=== PATIENT | female | born 1980 | race Caucasian/White ===

== ENCOUNTER 2016-12-24 15:07 | Outpatient (CLI) | payer BC ==
[~2016-12-24] VITALS: Ht 160 cm; Wt 90.3 kg
[2016-12-24] MEDS ORDERED: NORG1TAB14 PO (15:18)
[2016-12-24] MEDS ORDERED: LORA10TA7 PO (15:18)
[2016-12-24 15:19] VITALS: BP 128/79
[2016-12-24 15:48] LABS: BASOPHILS % (AUTO) 0 % (0-10); EOSINOPHILS # (AUTO) 0.1 10^3/uL (0.0-0.3); EOSINOPHILS % (AUTO) 1 % (0-10); LYMPHOCYTES # (AUTO) 2.7 X 10^3 (1.0-4.0); LYMPHOCYTES % (AUTO) 31 % (12-44); MEAN CORPUSCULAR HEMOGLOBIN 27 PG (25-34); MEAN CORPUSCULAR HGB CONC 33 G/DL (32-36); MEAN CORPUSCULAR VOLUME 84 FL (80-99); MEAN PLATELET VOLUME 12.4 FL (7.4-10.4); MONOCYTES # (AUTO) 0.6 X 10^3 (0.0-1.0); MONOCYTES % (AUTO) 7 % (0-12); NEUTROPHILS # (AUTO) 5.1 X 10^3 (1.8-7.8); NEUTROPHILS % (AUTO) 60 % (42-75); PLATELET COUNT 184 10^3/uL (130-400); RED BLOOD COUNT 4.88 10^6/uL (4.35-5.85); RED CELL DISTRIBUTION WIDTH 14.3 % (10.0-14.5); WHITE BLOOD COUNT 8.5 10^3/uL (4.3-11.0)
== END 2016-12-24 15:30 | disposition home or self-care (01) ==
LOC: PREOP 15:07
PROVIDERS: ATTEND Obstetrics & Gynecology
DX: Z01.812 Encounter for preprocedural laboratory examination (principal); Z11.2 Encounter for screening for other bacterial diseases; R19.09 Other intra-abdominal and pelvic swelling, mass and lump; N93.8 Other specified abnormal uterine and vaginal bleeding
CPT/HCPCS: 36415; 85025; 87081

== ENCOUNTER 2016-12-29 10:45 | Day surgery (SDC) | payer BC ==
--- NOTE | 2016-12-22 10:52 | HISTORY AND PHYSICAL ---
DATE OF SERVICE: 12/29/2016 This patient is a 36-year-old white female with a long history of irregular and dysfunctional bleeding. Ultrasound on 11/18/2016 showed a mass in the endometrial cavity near the right apex of 8 mm in diameter surrounded with fluid consistent with a polyp and/or fibroid versus other etiology. She continues to have spotting, bleeding and occasional passing of clots. She has some cramping with her cycles. She denies vaginal bleeding. She has no problem with her bowel or bladder. She denies dysuria or dyskinesia. ALLERGIES: HYDROCODONE which causes nausea. MEDICATIONS: Sprintec and an clzy-jsz-srvsnjk allergy medication. PAST MEDICAL HISTORY: Significant for having a dislocated left elbow at 12 years old. PAST MEDICAL HISTORY: A tubal sterilization performed on 10/30/2006. PAST OBSTETRIC HISTORY: Includes 1 term delivery. REVIEW OF SYSTEMS: As per the HPI. PHYSICAL EXAMINATION: HEENT: Normal. NECK: Supple with no lymphadenopathy, no thyromegaly. ABDOMEN: Soft, nontender, nondistended, mildly protuberant. EXTREMITIES: No clubbing or cyanosis. There is no Óscar's sign. PELVIC: Reveals normal internal and external genitalia with a normal rugous vagina. Urethra is somewhat hypermobile but there is a negative stress test with Valsalva. The cervix shows a large ectropion but otherwise is normal. The uterus is normal in size, consistency, contour, texture. It is anteverted. Adnexa is unremarkable. ASSESSMENT AND PLAN: This patient has abnormal bleeding that has not responded to cycle control with oral contraceptives. She continued to have breakthrough bleeding throughout the cycle. Ultrasound shows an abnormal mass inside the uterine cavity. Plan is for hysteroscopy with D and C to be performed on 12/29/2016. Job ID: [id number] DocumentID: [id number] Dictated Date: 12/22/2016 08:17:03 Bore Miner Operator Date: 12/22/2016 10:51:34 Dictated By: BRYAN SUNG MD
[~2016-12-29] VITALS: Ht 160 cm; Wt 90.3 kg
[2016-12-29 10:43] VITALS: BP 115/75
[~2016-12-29 10:45] MED LIST: LORA10TA7 PO; NORG1TAB14 PO
[2016-12-29] MEDS ORDERED: CATHETER FLUSH 10 ML SYR IV PRN (11:15)
[2016-12-29] MEDS ORDERED: ceFAZolin 1 GM/NS 50 ML IVPB IV ONE ×2 (11:15)
[2016-12-29] MEDS ORDERED: proPOfol 200 MG/20 ML (DIPRIVAN) VIAL IV ONE (11:37)
[2016-12-29] MEDS ORDERED: LACTATED RINGERS 1,000 ML IV ONE (11:37)
[2016-12-29] MEDS ORDERED: fentaNYL INJECTION 100 MCG/2 ML AMP ONE (11:37)
[2016-12-29] MEDS ORDERED: ONDANSETRON 4 MG/2 ML (SDV) Z0FRAN ONE (11:37)
[2016-12-29] MEDS ORDERED: MIDAZOLAM 2 MG/2 ML (VERSED) VIAL ONE (11:37)
[2016-12-29] MEDS ORDERED: LIDOCAINE PF 2% 10 ML (XYLOCAINE) AMP ONE (11:37)
[2016-12-29] MEDS ORDERED: SEVOFLURANE (ULTANE) 15 ML INHAL SOLN ONE (11:37)
[2016-12-29] MEDS ORDERED: LACTATED RINGERS 1,000 ML IV PRN (12:21)
[2016-12-29] MEDS ORDERED: D5 LR IV SOLUTION 1,000 ML IV SCH (12:26)
--- NOTE | 2016-12-29 12:26 | Progress Note-Pre Operative ---
Pre-Operative Progress Note H&P Reviewed The H&P was reviewed, patient examined and no changes noted. Date H&P Reviewed: December 29, 2016 Time H&P Reviewed: 12:26 Pre-Operative Diagnosis: dysfunctional uterine bleeding/intrauterine mass BRYAN SUNG MD December 29, 2016 12:26 pm
[2016-12-29] MEDS ORDERED: OXYC-202 PO (12:29)
[2016-12-29] MEDS ORDERED: MEPERIDINE (DEMEROL) INJ 100 MG/ML IM ONE (12:30)
[2016-12-29] MEDS ORDERED: ONDANSETRON 4 MG/2 ML (SDV) Z0FRAN IVP PRN ×2 (12:30→13:15)
[2016-12-29] MEDS ORDERED: oxyCODONE/APAP 10/325MG (PERCOCET 10) TABLET PO PRN (12:30)
[2016-12-29] MEDS ORDERED: ESTROGENS CONJ IV 25 MG/5 ML (PREMARIN) VIAL IVP ONE (12:30)
[2016-12-29] MEDS ORDERED: PROMETHAZINE INJ 25 MG/ML (PHENERGAN) AMP IM ONE (12:30)
[2016-12-29] MEDS ORDERED: KETOROLAC 30 MG/ML VIAL IVP ONE (12:30)
--- NOTE | 2016-12-29 12:30 | Discharge Instructions ---
Discharge Instructions Discharge Medications New, Converted or Re-Newed RX: RX on Chart Patient Instructions Patient Instructions: as directed Return to The Hospital For: as directed Activity & Diet Discharge Diet: No Restrictions Activity as Tolerated: No Orders-Post D/C & Referrals Follow Up Appt: Call to make follow up appt. for patient in 2 weeks. Activity: Rest for 24 hours, than as tolerated. Diet: As tolerated-Clear Liquids only if nauseated. Tomorrow, may shower or tub bathe as desired. No driving for 24 hours, no alcoholic beverages for 24 hours, and nothing per vagina (no tampons, douching, or intercourse) for 2 weeks. Patient to return to the clinic as soon as possible for: Temperature greater than 101F, Severe Pain, Foul discharge from incision or vagina, Excessive Bleeding (more than a period). BRYAN SUNG MD December 29, 2016 12:30 pm
[2016-12-29] MEDS ORDERED: DEXAMETHASONE PF 10 MG/ML (DECADRON) VIAL ONE (12:45)
[2016-12-29] MEDS ORDERED: MEPERIDINE (DEMEROL) INJ 50 MG/ML IVP PRN (13:15)
[2016-12-29] MEDS ORDERED: KETOROLAC 30 MG/ML VIAL ONE (13:17)
[2016-12-29] MEDS ORDERED: ESTROGENS CONJ IV 25 MG/5 ML (PREMARIN) VIAL ONE (13:18)
[2016-12-29] MEDS ORDERED: WATER (STERILE) FOR INJECTION 10 ML ONE (13:18)
[2016-12-29] MEDS ORDERED: morphine INJ 10 MG/ML 1ML (SYR OR VIAL) ONE (13:19)
[2016-12-29] MEDS: morphine INJ 10 MG/ML 1ML (SYR OR VIAL) IVP PRN (13:36)
[2016-12-29 14:10] VITALS: BP 119/74
[2016-12-29 14:40] VITALS: BP 113/73
[2016-12-29 15:15] VITALS: BP 115/72
[2016-12-29 15:55] VITALS: BP 115/72
--- NOTE | 2016-12-30 06:31 | OPERATIVE REPORT ---
DATE OF SERVICE: 12/29/2016 PREOPERATIVE DIAGNOSES: Dysfunctional uterine bleeding and intrauterine mass. POSTOPERATIVE DIAGNOSES: Dysfunctional uterine bleeding and intrauterine mass. OPERATIVE PROCEDURE: Hysteroscopy with directed biopsy and D and C. OPERATIVE DESCRIPTION: With the patient in the supine position and under satisfactory general anesthesia, she was repositioned in the dorsal lithotomy position in the Jose stirrups and prepped and draped then in the usual fashion for vaginal surgery. Weighted speculum placed through the posterior fornix of the vagina, cervix exposed and grasped anteriorly with a single tooth tenaculum. The uterus was sounded to 9 cm with the uterine sound. The cervix was then serially dilated with Jonny dilators to a #20 Jonny. The hysteroscope was introduced and using LR as the distending medium, endometrial cavity was examined. There was a polypoid mass arising near the right tubal ostia inside the uterus. This was biopsied off directly and sent to pathology separately, labeled appropriately. The endometrial cavity was then sharply curettaged in all 4 quadrants to good uterine cri. The tissue was sent separately to pathology. The hysteroscope was then re-introduced. All blood clot and debris were evacuated. There was no remaining abnormal-appearing tissue. There was no significant bleeding. The procedure at this point was complete. The hysteroscope was removed as was the tenaculum. There was no bleeding from the puncture site. There was minimal oozing from the cervical os. Sponge and needle counts were correct. Estimated blood loss was minimal. The patient tolerated the procedure well and was uneventfully awakened from general anesthesia and transferred to the recovery room in stable condition with plans for discharge home. Job ID: [id number] DocumentID: [id number] Dictated Date: 12/29/2016 13:02:46 Leather Case Finisher Date: 12/30/2016 03:34:46 Dictated By: BRYAN SUNG MD
== END 2016-12-29 15:55 | disposition home or self-care (01) ==
LOC: SDC 10:45
PROVIDERS: ATTEND Obstetrics & Gynecology
DX: N93.8 Other specified abnormal uterine and vaginal bleeding (principal)
CPT/HCPCS: 84703

== ENCOUNTER → 2018-12-21 | Outpatient (CLI) | payer BC ==
[~2018-12-21] MED LIST changes: +OXYC1TAB12 PO
--- NOTE | 2018-12-21 14:24 | Diagnostic Imaging Report ---
INDICATION: Routine screening. COMPARISON: 10/20/2014. TECHNIQUE: 2D and 3D bilateral screening mammography was performed with CAD. FINDINGS: Both breasts are heterogeneously dense, limiting the sensitivity of mammography. The previously described rounded mass in the left breast is no longer visualized. This was shown to represent a cyst. There are innumerable microcalcifications throughout both breasts, similar to the prior exam. Many of these appear to be milk of calcium. No suspicious mass is seen. The axillae are unremarkable. IMPRESSION: No mammographic features suspicious for malignancy are identified. ACR BI-RADS Category 2: Benign findings. Result letter will be mailed to the patient. Note: At least 10% of breast cancer is not imaged by mammography. Dictated by: Dictated on workstation # [id number]
== END ==
LOC: RAD 08:08
PROVIDERS: ATTEND Obstetrics & Gynecology
DX: Z12.31 Encounter for screening mammogram for malignant neoplasm of breast (principal)
CPT/HCPCS: 77067

== ENCOUNTER → 2019-12-26 | Outpatient (CLI) | payer BC ==
--- NOTE | 2019-12-26 10:46 | Diagnostic Imaging Report ---
INDICATION: Routine screening. COMPARISON: 12/21/2018 and 10/20/2014. TECHNIQUE: 2D and 3D bilateral screening mammography was performed with CAD. FINDINGS: Both breasts remain heterogeneously dense, limiting the sensitivity of mammography. Innumerable microcalcifications throughout both breasts are again noted, limiting evaluation. No dominant mass is identified. The parenchymal pattern appears stable. The axillae are unremarkable. IMPRESSION: No mammographic features suspicious for malignancy are identified. ACR BI-RADS Category 2: Benign findings. Result letter will be mailed to the patient. Note: At least 10% of breast cancer is not imaged by mammography. Dictated by: Dictated on workstation # [id number]
== END ==
LOC: RAD 08:19
PROVIDERS: ATTEND Obstetrics & Gynecology
DX: Z12.31 Encounter for screening mammogram for malignant neoplasm of breast (principal)
CPT/HCPCS: 77063; 77067

== ENCOUNTER → 2021-07-03 | Outpatient (CLI) | payer BC ==
--- NOTE | 2021-07-03 12:29 | Diagnostic Imaging Report ---
INDICATION: Routine screening. COMPARISON: 12/26/2019 and 12/21/2018. TECHNIQUE: 2D and 3D bilateral screening mammography was performed with CAD. FINDINGS: Both breasts are heterogeneously dense, limiting the sensitivity of mammography. Innumerable calcifications throughout both breasts are again noted, compromising the study. No discrete mass is identified. The axillae are unremarkable. IMPRESSION: No mammographic features suspicious for malignancy are identified. ACR BI-RADS Category 2: Benign findings. Result letter will be mailed to the patient. Note: At least 10% of breast cancer is not imaged by mammography. Dictated by: Dictated on workstation # [id number]
== END ==
LOC: RAD 10:30
PROVIDERS: ATTEND Obstetrics & Gynecology
DX: Z12.31 Encounter for screening mammogram for malignant neoplasm of breast (principal)
CPT/HCPCS: 77063; 77067

== ENCOUNTER → 2022-10-21 | Outpatient (CLI) | payer BC ==
--- NOTE | 2022-10-21 14:49 | Diagnostic Imaging Report ---
Indication: Routine screening. Comparison is made with prior mammograms from 07/03/2021 and 12/26/2019. 2-D and 3-D bilateral screening mammography was performed with CAD. Both breasts are heterogeneously dense, limiting the sensitivity of mammography. Innumerable microcalcifications are again noted throughout both breasts. No mass is identified. No malignant-appearing microcalcifications are seen. Axillae are unremarkable. IMPRESSION: BI-RADS Category 2. No mammographic features suspicious for malignancy are identified. ACR BI-RADS Category 2: Benign findings. Result letter will be mailed to the patient. Note: At least 10% of breast cancer is not imaged by mammography. Dictated by: Dictated on workstation # [id number]
== END ==
LOC: RAD 09:30
PROVIDERS: ATTEND Nurse Practitioner Women's Health
DX: Z12.31 Encounter for screening mammogram for malignant neoplasm of breast (principal)
CPT/HCPCS: 77063; 77067